=== PATIENT | male | born 2000 | race Caucasian/White ===

== ENCOUNTER 2024-12-26 16:00 | Emergency (ER) | payer MEDICARE, MEDICAID ==
[~2024-12-26] VITALS: Ht 167.6 cm; Wt 86.0 kg
[2024-12-26 16:14] VITALS: O2SAT 97
[2024-12-26] MEDS: HYDROCODONE/ACETAMINOPHEN 5/325MG TABLET PO STA (17:08)
[2024-12-26] MEDS ORDERED: NAPR-681 PO (18:37)
[2024-12-26] MEDS ORDERED: HYDR-4001 MT (18:37)
[2024-12-26 19:59] VITALS: BP 124/70; PULSE 68; RESP 18; TEMP 36.8; O2SAT 99
== END 2024-12-26 20:01 | disposition home or self-care (01) ==
LOC: ER 16:00
DX: S83.91XA Sprain of unspecified site of right knee, initial encounter (principal); M25.561 Pain in right knee; F42.9 Obsessive-compulsive disorder, unspecified; I10 Essential (primary) hypertension; X58.XXXA Exposure to other specified factors, initial encounter; Y93.02 Activity, running; Y92.89 Other specified places as the place of occurrence of the external cause; Y99.8 Other external cause status
CPT/HCPCS: 73562; 99283